=== PATIENT | male | born 1990 | race Caucasian/White ===

== ENCOUNTER → 2016-12-23 | Outpatient (CLI) | payer OTHER | LOC: KOH-I 09:51 | DX: R74.8 Abnormal levels of other serum enzymes (principal); K76.0 Fatty (change of) liver, not elsewhere classified | CPT/HCPCS: 76705 ==

== ENCOUNTER → 2020-12-04 | Outpatient (CLI) | payer OTHER ==
[~2020-12-04] MED LIST: BENZTROPINE MESY1 MG PO; FLONASE 0.05% N16 GM; KEPPRA500 MG PO; KLONOPIN1 MG PO; LEVSIN TAB 00.125 MG PO; LOPRESSOR 25 MG25 MG PO; MYCOSTATIN100000 UTS PO; NEURONTIN400 MG PO; OMEPRAZOLE40 MG PO; SINGULAIR10 MG PO; ZYPREXA20 MG PO
[2020-12-05 20:09] LABS: AMPHETAMINES, URINE Negative ng/mL (Cutoff=1000); BARBITURATE Negative ng/mL (Cutoff=200); BENZODIAZEPINES Negative ng/mL (Cutoff=200); CANNABINOIDS Negative ng/mL (Cutoff=20); COCAINE (METABOLITE) Negative ng/mL (Cutoff=300); CREATININE 21.7 mg/dL (20.0-300.0); MEPERIDINE Negative ng/mL (Cutoff=200); METHADONE Negative ng/mL (Cutoff=300); OPIATES Negative ng/mL (Cutoff=300); PHENCYCLIDINE Negative ng/mL (Cutoff=25); PROPOXYPHENE Negative ng/mL (Cutoff=300)
== END ==
LOC: LAB 15:40
PROVIDERS: Nurse Practitioner Family
DX: Z51.81 Encounter for therapeutic drug level monitoring (principal); F20.9 Schizophrenia, unspecified; G47.00 Insomnia, unspecified; Z79.899 Other long term (current) drug therapy; F32.9 Major depressive disorder, single episode, unspecified
CPT/HCPCS: 80307

== ENCOUNTER 2021-03-09 18:57 | Emergency (ER) | payer OTHER ==
[2021-03-09 19:41] LABS: HEMOGLOBIN 14.2 gm/dl (14.0-17.5); RED BLOOD COUNT 4.64 M/UL (4.20-5.50); WHITE BLOOD COUNT 11.7 K/UL (4.5-11.0)
[2021-03-09 20:00] LABS: BUN/CREATININE RATIO 8 (0-10)
== END 2021-03-10 03:44 | disposition home or self-care (01) ==
LOC: ER1 18:57
PROVIDERS: Family Medicine
DX: F20.0 Paranoid schizophrenia (principal); F17.200 Nicotine dependence, unspecified, uncomplicated
CPT/HCPCS: 80053; 80307; 81001; 83605; 83690; 85025; 99284

== ENCOUNTER 2021-05-25 15:37 | Emergency (ER) | payer OTHER ==
[2021-05-25 16:15] LABS: HEMOGLOBIN 14.6 gm/dl (14.0-17.5); RED BLOOD COUNT 4.82 M/UL (4.20-5.50); WHITE BLOOD COUNT 12.1 K/UL (4.5-11.0)
[2021-05-25 16:31] LABS: BUN/CREATININE RATIO 14 (0-10)
[2021-05-26] MEDS ORDERED: BACTROBAN OINT22 GM EXT (00:19)
[2021-05-26] MEDS ORDERED: CLEOCIN HCL300 MG PO (00:19)
== END 2021-05-26 00:30 | disposition home or self-care (01) ==
LOC: ER1 15:37
PROVIDERS: Physician Assistant
DX: L02.412 Cutaneous abscess of left axilla (principal); F17.200 Nicotine dependence, unspecified, uncomplicated
CPT/HCPCS: 10060; 80053; 83605; 85025; 87040; 99283

== ENCOUNTER → 2021-06-01 | Outpatient (CLI) | payer OTHER ==
[~2021-06-01] MED LIST changes: +BACTROBAN OINT22 GM EXT; +CLEOCIN HCL300 MG PO
[2021-06-01 16:59] LABS: BUN/CREATININE RATIO 8 (0-10)
== END ==
LOC: LAB 15:43 → OPSV 15:43
PROVIDERS: Physician Assistant
DX: L02.91 Cutaneous abscess, unspecified (principal); R77.9 Abnormality of plasma protein, unspecified; E87.1 Hypo-osmolality and hyponatremia
CPT/HCPCS: 36415; 80048; 83935; 84155; 84156; 84300; G0463

== ENCOUNTER 2021-08-12 14:21 | Emergency (ER) | payer OTHER ==
[2021-08-12 16:12] LABS: HEMOGLOBIN 14.2 gm/dl (14.0-17.5); RED BLOOD COUNT 4.75 M/UL (4.20-5.50); WHITE BLOOD COUNT 8.8 K/UL (4.5-11.0)
[2021-08-12 16:42] LABS: BUN/CREATININE RATIO 7 (0-10)
== END 2021-08-12 18:35 | disposition home or self-care (01) ==
LOC: ER1 14:21
PROVIDERS: Emergency Medicine
DX: R10.9 Unspecified abdominal pain (principal); I10 Essential (primary) hypertension; Z79.899 Other long term (current) drug therapy; Z20.822 Contact with and (suspected) exposure to COVID-19
CPT/HCPCS: 70450; 71045; 80053; 81001; 82550; 82553; 83690; 83874; 84484; 85025; 93005; 99284; U0002